=== PATIENT | male | born 1985 | race Hispanic/Latino ===

== ENCOUNTER 2023-03-02 08:22 | Emergency (ER) | payer OTHER ==
[2023-03-02] MEDS ORDERED: KETOROLAC 30 MG/ML INJ ONE (09:06)
[2023-03-02] MEDS ORDERED: NA CHLORIDE 0.9% 1,000 ML ONE (09:06)
[2023-03-02] MEDS ORDERED: ACETAMINOPHEN 500 MG TAB ONE (09:06)
[2023-03-02] MEDS ORDERED: ONDANSETRON 4 MG/2 ML VIAL ONE (09:11)
[2023-03-02 09:56] LABS: SARS-CoV-2 Antigen Rapid Res Negative (Negative)
--- NOTE | 2023-03-02 10:25 | EDPHYS ---
Physician Documentation [facility] Name: Andreas Gonzalez Age: 37 yrs Sex: Male : 1985 Arrival Date: 03/02/2023 Time: 08:22 Bed 7 Private MD: ED Physician Jeremy Fry HPI: 03/02 08:40 This 37 yrs old Male presents to ER via Unassigned with complaints of rn Fever,Headache. 08:40 The patient reports fever, that was measured at 102 degrees Fahrenheit. Onset: The rn symptoms/episode began/occurred 4 day(s) ago. Modifying factors: there are no obvious modifying factors. Associated signs and symptoms: Pertinent positives: chills, cough, diarrhea, headache, Pertinent negatives: abdominal pain, altered mental status, skin rash, shortness of breath, vomiting. Severity of symptoms: At their worst the symptoms were moderate in the emergency department the symptoms are unchanged. The patient has not experienced similar symptoms in the past. Patient reports 4 days of fever to 102, headache, cough, diarrhea, and generalized malaise. Reports headache is the most severe symptom. No known sick contacts. Daughter has cough currently but no fever. Has not taken any medication for her for fever headache this morning. Last dose was last night. Historical: - Allergies: 08:43 No Known Allergies; hb - Home Meds: 08:43 None [Active]; hb - PMHx: 08:43 None; hb - PSHx: 08:43 None; hb - Immunization history:: Adult Immunizations up to date. - Social history:: Smoking status: Patient reports the use of cigarette tobacco products, denies chronic smoking, but will smoke occasionally. - Family history:: not pertinent. - Hospitalizations: : No recent hospitalization is reported. ROS: 08:40 Constitutional: Positive for fever and chills Eyes: Negative for injury, pain, redness, rn and discharge, ENT: Negative for injury, pain, and discharge, Cardiovascular: Negative for chest pain, palpitations, and edema, Respiratory: Positive for cough, negative for shortness of breath Abdomen/GI: Positive for diarrhea, negative for abdominal pain MS/Extremity: Negative for injury and deformity, Skin: Negative for injury, rash, and discoloration, Neuro: Positive for headache and generalized weakness. No seizure. Exam: 08:40 Constitutional: This is a well developed, well nourished patient who is awake, alert, rn and in no acute distress. Ambulatory to room without difficulty or assistance. Diaphoretic Head/Face: Normocephalic, atraumatic. Eyes: Pupils equal round and reactive to light, extra-ocular motions intact. Lids and lashes normal. Conjunctiva and sclera are non-icteric and not injected. Cornea within normal limits. Periorbital areas with no swelling, redness, or edema. Neck: Trachea midline, no masses palpated, and no cervical lymphadenopathy. Supple, full range of motion without nuchal rigidity, or vertebral point tenderness. No Meningismus. Cardiovascular: Tachycardic, regular. No pulse deficits. Respiratory: Speaking full sentences, no retractions. Abdomen/GI: Soft, nontender Skin: Warm MS/ Extremity: Pulses equal, no cyanosis Neuro: Awake and alert, GCS 15, oriented to person, place, time, and situation. Cranial nerves II-XII grossly intact. Motor strength 5/5 in all extremities. Sensory grossly intact. Cerebellar exam normal. Normal gait. Vital Signs: 08:42 BP 144 / 96; Pulse 107; Resp 16; Temp 99.7(O); Pulse Ox 97% on R/A; Weight 99.79 kg; hb Height 6 ft. 0 in. ; Pain 9/10; 09:14 BP 122 / 90; Pulse 96; Resp 16; Pulse Ox 97% on R/A; hb 10:21 BP 91 / 72; Pulse 84; Resp 15; Pulse Ox 97% on R/A; hb 08:42 Body Mass Index 29.84 (99.79 kg, 182.88 cm) hb 08:42 Pain Scale: Adult hb MDM: 08:28 Patient medically screened. rn 10:23 Differential diagnosis: viral Infection, bacterial infection, URI. Data reviewed: vital rn signs, nurses notes, lab test result(s), and as a result, I will discharge patient. Counseling: I had a detailed discussion with the patient and/or guardian regarding the historical points, exam findings, and any diagnostic results supporting the discharge/admit diagnosis, lab results, the need for outpatient follow up, to return to the emergency department if symptoms worsen or persist or if there are any questions or concerns that arise at home. Special discussion: I discussed with the patient/guardian in detail that at this point there is no indication for admission to the hospital. It is understood, however, that if the symptoms persist or worsen the patient needs to return immediately for re-evaluation. Based on the history and exam findings, there is no indication for further emergent testing or inpatient evaluation. I discussed with the patient/guardian the need to see the primary care provider for further evaluation of the symptoms. 10:23 ED course: Headache improved, nearly resolved now. Strep positive. Flu and rn COVID-negative. Will DC home with antibiotics. I have personally reviewed all of the results, including but not limited to blood tests deemed necessary to safely discharge this patient at this time. All results given to and printed out for patient. I personally went over all the results with the patient and answered all questions. Patient will follow-up with PCP and or specialist as discussed. Return precautions given and understood.. 03/02 08:38 Order name: Flu; Complete Time: 10:18 rn 03/02 08:38 Order name: SARS RAPID; Complete Time: 10: rn 03/02 08:38 Order name: Strep; Complete Time: 10: rn 03/02 08:38 Order name: IV Start; Complete Time: 09:14 rn Administered Medications: 09:13 Drug: NS 0.9% IV 1000 ml IV at 1000 ml once Route: IV; Rate: 1000 ml; Site: right hb antecubital; 11:02 Follow up: Response: No adverse reaction; IV Status: Completed infusion; IV Intake: ph 1000ml 09:13 Drug: Acetaminophen PO 1000 mg PO once Route: PO; hb 11:02 Follow up: Response: No adverse reaction ph 09:13 Drug: Ketorolac IVP 30 mg IVP once Route: IVP; Site: right antecubital; hb 11:02 Follow up: Response: No adverse reaction ph 09:14 Drug: Ondansetron IVP 4 mg IVP once; over 2 minutes Route: IVP; Site: right antecubital;hb 11:03 Follow up: Response: No adverse reaction ph 11:02 Drug: Rocephin IV 1 grams IV at calculated rate once; Given slow IV push per pharmacy ph instructions Route: IV; Rate: calculated rate; Site: right antecubital; Disposition Summary: 03/02/23 10:25 Discharge Ordered Notes: Location: Home rn Problem: new rn Symptoms: have improved rn Condition: Stable rn Diagnosis - Streptococcal pharyngitis rn - Headache rn - Fever, unspecified rn Followup: rn - With: Private Physician - When: As needed - Reason: Recheck today's complaints, Re-evaluation by your physician Discharge Instructions: - Discharge Summary Sheet rn - Fever, Adult rn - Strep Throat, Adult rn Forms: - Medication Reconciliation Form rn - Thank You Letter 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
--- NOTE | 2023-03-02 10:25 | ER ---
Nurse's Notes [facility] Name: Andreas Gonzalez Age: 37 yrs Sex: Male : 1985 Arrival Date: 03/02/2023 Time: 08:22 Bed 7 Private MD: Diagnosis: Streptococcal pharyngitis;Headache;Fever, unspecified Presentation: 03/02 08:42 Chief complaint: Fever and headache 4 days, N/V today. TMAX 103. Coronavirus screen: hb Client presents with at least one sign or symptom that may indicate coronavirus-19. Provider contacted for isolation considerations. Ebola Screen: No symptoms or risks identified at this time. Initial Sepsis Screen: Does the patient meet any 2 criteria? No. Patient's initial sepsis screen is negative. Does the patient have a suspected source of infection? No. Patient's initial sepsis screen is negative. Risk Assessment: Do you want to hurt yourself or someone else? Patient reports no desire to harm self or others. Onset of symptoms was February 27, 2023. 08:42 Method Of Arrival: Ambulatory 08:42 Acuity: IDANIA 3 hb Triage Assessment: 08:43 General: Appears in no apparent distress. Behavior is calm, cooperative. Pain: Pain hb currently is 9 out of 10 on a pain scale. EENT: No signs and/or symptoms were reported regarding the EENT system. Neuro: Level of Consciousness is awake, alert, obeys commands, Oriented to person, place, time, situation, Reports headache. Cardiovascular: Patient's skin is warm and dry. Respiratory: Respiratory effort is even, unlabored, Respiratory pattern is regular, symmetrical. GI: Reports nausea, vomiting. : No signs and/or symptoms were reported regarding the genitourinary system. Derm: Skin is pink, warm \T\ dry. Musculoskeletal: No signs and/or symptoms reported regarding the musculoskeletal system. Historical: - Allergies: 08:43 No Known Allergies; hb - Home Meds: 08:43 None [Active]; hb - PMHx: 08:43 None; hb - PSHx: 08:43 None; hb - Immunization history:: Adult Immunizations up to date. - Social history:: Smoking status: Patient reports the use of cigarette tobacco products, denies chronic smoking, but will smoke occasionally. - Family history:: not pertinent. - Hospitalizations: : No recent hospitalization is reported. Screenin:44 [facility] ED Fall Risk Assessment (Adult) Score/Fall Risk Level 0 - 2 = Low Risk hb Oriented to surroundings, Maintained a safe environment. Abuse screen: Denies threats or abuse. Denies injuries from another. Nutritional screening: No deficits noted. Tuberculosis screening: No symptoms or risk factors identified. Assessment: 08:44 General: See triage assessment.. hb 10:21 Reassessment: Patient appears in no apparent distress at this time. Patient and/or hb family updated on plan of care and expected duration. Pain level reassessed. Patient is alert, oriented x 3, equal unlabored respirations, skin warm/dry/pink. 11:03 Reassessment: Patient appears in no apparent distress at this time. Patient and/or ph family updated on plan of care and expected duration. Pain level reassessed. Patient is alert, oriented x 3, equal unlabored respirations, skin warm/dry/pink. D/C pending completion of IV antibiotics. Vital Signs: 08:42 BP 144 / 96; Pulse 107; Resp 16; Temp 99.7(O); Pulse Ox 97% on R/A; Weight 99.79 kg; hb Height 6 ft. 0 in. ; Pain 9/10; 09:14 BP 122 / 90; Pulse 96; Resp 16; Pulse Ox 97% on R/A; hb 10:21 BP 91 / 72; Pulse 84; Resp 15; Pulse Ox 97% on R/A; hb 08:42 Body Mass Index 29.84 (99.79 kg, 182.88 cm) hb 08:42 Pain Scale: Adult hb ED Course: 08:27 Patient arrived in ED. ts1 08:28 Jeremy Fry MD is Attending Physician. rn 08:42 Madeleine Zaragoza RN is Primary Nurse. hb 08:43 Triage completed. hb 08:43 Arm band placed on. hb 08:44 Patient has correct armband on for positive identification. Provided Education on: . hb 08:44 No provider procedures requiring assistance completed. hb 09:12 Inserted saline lock: 20 gauge in right antecubital area, using aseptic technique. hb 09:14 Strep Sent. hb 09:14 SARS RAPID Sent. hb 09:14 Flu Sent. hb Administered Medications: 09:13 Drug: NS 0.9% IV 1000 ml IV at 1000 ml once Route: IV; Rate: 1000 ml; Site: right hb antecubital; 11:02 Follow up: Response: No adverse reaction; IV Status: Completed infusion; IV Intake: ph 1000ml 09:13 Drug: Acetaminophen PO 1000 mg PO once Route: PO; hb 11:02 Follow up: Response: No adverse reaction ph 09:13 Drug: Ketorolac IVP 30 mg IVP once Route: IVP; Site: right antecubital; hb 11:02 Follow up: Response: No adverse reaction ph 09:14 Drug: Ondansetron IVP 4 mg IVP once; over 2 minutes Route: IVP; Site: right antecubital;hb 11:03 Follow up: Response: No adverse reaction ph 11:02 Drug: Rocephin IV 1 grams IV at calculated rate once; Given slow IV push per pharmacy ph instructions Route: IV; Rate: calculated rate; Site: right antecubital; Medication: 08:44 VIS not applicable for this client. hb Intake: 11:02 IV: 1000ml; Total: 1000ml. ph Outcome: 10:25 Discharge ordered by . rn 11:26 Patient left the ED. hb Signatures: Jeremy Fry MD MD rn Hall, Patricia, RN RN ph Baxter, Heather, RN RN hb Simpson, Tanya, PAS PAS ts1
[2023-03-02] MEDS ORDERED: NA CHLORIDE 0.9% 50 ML ONE (11:11)
[2023-03-02] MEDS ORDERED: CEFTRIAXONE 1000 MG/VIAL ONE (11:11)
[2023-03-02 11:44] VITALS: TEMP 99.7; O2SAT 97
[2023-03-02 11:47] VITALS: BP 91/72
== END 2023-03-02 11:26 | disposition home or self-care (01) ==
LOC: ER 08:22
DX: J02.0 Streptococcal pharyngitis (principal); R51.9 Headache, unspecified; F17.210 Nicotine dependence, cigarettes, uncomplicated; Z11.52 Encounter for screening for COVID-19
CPT/HCPCS: 96361; 36415; 87081; 87804 ×2; 96375; 96374; 99284; 87811; J2405; J7030; J0696